=== PATIENT | female | born 1980 | race Caucasian/White ===

== ENCOUNTER 2025-05-05 23:50 | Emergency (ER) | payer OTHER, SELFPAY ==
[2025-05-06] VITALS: BP 138/88; PULSE 108; RESP 16; TEMP 36.8; O2SAT 98
--- NOTE | 2025-05-06 01:02 | ED_ITS ---
HPI - Skin/Abscess/Foreign Bdy General Chief complaint: Skin/Abscess/Foreign Body Stated complaint: insect bite Time Seen by Provider: 05/06/25 00:15 Source: patient Mode of arrival: ambulatory Limitations: no limitations History of Present Illness HPI narrative: This is a 45-year-old female with no significant past medical history presents to the ED for arm infection. Patient states that she woke up this morning and she knows she was scratching her right arm noticed significant redness to the area. She has had this before and she was diagnosed with a bug bite previously. Denies fevers, chills. Related Data Allergies Allergy/AdvReac Type Severity Reaction Status Date / Time ciprofloxacin (From Cipro) Allergy Intermediate Vomiting Verified 05/05/25 23:51 Penicillins Allergy Mild Rash Verified 05/05/25 23:51 sulfamethoxazole Allergy vomiting Verified 05/05/25 23:51 trimethoprim Allergy Vomiting Verified 05/05/25 23:51 Review of Systems Review of Systems: Gen.: Denies fevers or chills Eyes: Denies eye pain or visual change ENT: Denies congestion Respiratory: Denies shortness of breath or cough CV: Denies chest pain or palpitations GI: Denies abdominal pain nausea, emesis or diarrhea denies burning, urgency, frequency or hematuria Musculoskeletal: Denies back pain or muscle pain Neuro: Denies numbness, tingling, weakness or focal weakness Skin: As per HPI Except as documented, all other systems reviewed and negative PMFSH Past Medical History Medical History Anxiety Depression Surgical History Surgical History Dougherty teeth removed Family History Family History Mother Hypertension Father Hypertension Social History Social History Smoking status: Current some day smoker Tobacco type: cigarettes Alcohol intake: current Drinks per week: 10 Substance use: never Exam Narrative: APPEARANCE: No acute distress, nontoxic, resting in bed HEENT: Normocephalic, atraumatic, OMM RESPIRATORY: No respiratory distress CARDIOVASCULAR: Appears well perfused ABDOMINAL: Nondistended MUSCULOSKELETAl: Moves all extremities. No obvious deformities NEURO: Awake and alert. SKIN:: Erythema and warmth over the right forearm with small areas of serous drainage, no areas of fluctuance. PSYCHIATRIC: Normal affect/mood, Course Vital Signs Vital signs: Vital Signs Temperature 98.3 F 05/06/25 00:00 Pulse Rate 108 H 05/06/25 00:00 Respiratory Rate 16 05/06/25 00:00 Blood Pressure 138/88 05/06/25 00:00 Pulse Oximetry 98 05/06/25 00:00 Oxygen Delivery Room Air 05/06/25 00:00 Temperature 98.3 F 05/06/25 00:00 Pulse Rate 108 H 05/06/25 00:00 Respiratory Rate 16 05/06/25 00:00 Blood Pressure 138/88 05/06/25 00:00 Pulse Oximetry 98 05/06/25 00:00 Oxygen Delivery Room Air 05/06/25 00:00 MDM - Skin/Abscess/Foreign Bdy MDM Narrative Medical decision making narrative: 45-year-old female Presenting for possible insect bite versus infection to right arm. On initial evaluation patient was in no acute distress afebrile, hemodynamic stable. Differentials include but are not limited to: Cellulitis, insect bite, abscess, allergic reaction Notable exam findings: Significant erythema over the right forearm with small areas of a small amount of serous drainage Patient's exam was most consistent with a cellulitis. She will be given a prescription for doxycycline. She was advised follow-up with her PCP in the next week for re-evaluation. Patient was agreeable to this plan. Given strict return precautions. Medical Records Attestation: I reviewed the patient's medical records. Discharge Plan Discharge Clinical Impression: Cellulitis Qualifiers: Site of cellulitis: extremity Site of cellulitis of extremity: upper extremity Laterality: right Qualified Code(s): L03.113 - Cellulitis of right upper limb Patient Disposition: Home Condition: Stable Instructions: Antibiotic Form, Cellulitis (ED) Additional Instructions: You likely have a cellulitis. You were given a prescription for doxycycline, take this as prescribed. You may take Tylenol and ibuprofen for the pain. Return the ED for any new or worsening symptoms. For pain, discomfort or temperature greater than or equal to 100.8 ?F please alternate the following 2 medications as needed. First medication- acetaminophen/Tylenol- 1000mg every 6-8 hours as needed for above indications. Second medication- ibuprofen/Motrin-600mg every 6-8 hours as needed for above indication. Patient Language: Kittitian Prescriptions: New doxycycline hyclate 100 mg capsule 100 mg PO BID Qty: 14 0RF No Action venlafaxine 75 mg capsule,extended release 24hr 75 mg PO DAILY Qty: 90 1RF meloxicam 15 mg tablet 15 mg PO DAILY Qty: 30 0RF alprazolam [Xanax] 0.25 mg tablet 0.25 mg PO TID PRN (Reason: anxiety) Qty: 90 0RF Follow-up/Referrals: Carlo,MD Yaa [Primary Care Provider, Family Practice]
[2025-05-06] MEDS: DOXYCYCLINE HYCLATE 100 MG TABLET PO (01:17)
--- OUTSIDE RECORDS SUMMARY | 2025-05-06 02:02 | XMS_ITS | Clinical Summary ---
Author Organization [facility] [place] [address] Address [address] [place] [id number] Care Team Providers Care Inner Layer Scrubber Tender Name Role Phone Yaa Matos MD Primary Care Provider [phone] Allergies Active Allergy Reactions Criticality Noted Date Comments Penicillins Unknown 11/17/2021 Medications No known medications Active Problems No known active problems Surgical History Surgery Date Site/Laterality Comments SECTION Social History Tobacco Use Types Packs/Day Years Used Date Smoking Tobacco: Every Day Personal Safety Answer Date Recorded Getting School Help Needed Not on file 08/17 Comments Unknown Sex and Gender Information Value Date Recorded Sex Assigned at Not on file Legal Sex Female 10:30 AM CDT Gender Identity Not on file Sexual Orientation Not on file Last Filed Vital Signs Vital Sign Reading Time Taken Comments Blood Pressure 144/92 11/17/2021 5:49 PM CDT Pulse 76 11/17/2021 5:49 PM CDT Temperature 37 C (98.6 F) 11/17/2021 5:49 PM CDT Respiratory Rate 16 11/17/2021 5:49 PM CDT Oxygen Saturation 100% 11/17/2021 5:49 PM CDT Inhaled Oxygen Concentration - - Weight 66.2 kg (146 lb) 11/17/2021 5:49 PM CDT Height 157.5 cm (5' 2) 11/17/2021 5:49 PM CDT Body Mass Index 26.7 11/17/2021 5:49 PM CDT Plan of Treatment Not on file Insurance [facility] CHOICE PLUS Care Teams Inner Layer Scrubber Tender Relationship Specialty Start Date End Date Yaa Matos MD PCP - General Family Medicine 11/17/21
--- OUTSIDE RECORDS SUMMARY | 2025-05-06 02:02 | XMS_ITS | Clinical Summary ---
Author Organization [facility] [employer] Address [address] [facility] [place] [address] Care Team Providers Care Flight Manager Name Role Phone Yaa Matos MD Primary Care Provider [phone] Source Comments [facility],non-owned Affiliates and Associated Physician Practices is amultiple site organization consisting of ambulatory clinics and hospital sitesin [place], [place], [place] and [place]. This disclosure is being madepursuant to the Care Everywhere program and may not contain all information available regarding this patient. Last updated 18.[facility] [employer] Allergies Active Allergy Reactions Criticality Noted Date Comments Penicillins Unknown 11/17/2021 Medications * Be aware that medications may not be up to date on this document. Alwaysverify current medications with the patient. No known medications Active Problems Problem Noted Date Diagnosed Date Pain in both lower extremities 12/28/2021 Venous congestion 12/28/2021 Mottled skin 12/28/2021 Social History Tobacco Use Types Packs/Day Years Used Date Smoking Tobacco: Every Day Cigarettes Smokeless Tobacco: Never Comments:started at age 21 Comments No Sex and Gender Information Value Date Recorded Sex Assigned at Not on file Legal Sex Female 4:45 PM CDT Gender Identity Not on file Sexual Orientation Not on file Last Filed Vital Signs Vital Sign Reading Time Taken Comments Blood Pressure 133/83 12/28/2021 3:18 PM CDT Pulse 79 12/28/2021 3:18 PM CDT Temperature 36.6 C (97.9 F) 12/28/2021 3:18 PM CDT Respiratory Rate 20 12/28/2021 3:18 PM CDT Oxygen Saturation 97% 10/28/2018 12:41 PM CDT Inhaled Oxygen Concentration - - Weight 65.3 kg (144 lb) 12/28/2021 3:18 PM CDT Height 157.5 cm (5' 2) 12/28/2021 3:18 PM CDT Body Mass Index 26.34 12/28/2021 3:18 PM CDT Plan of Treatment Health Maintenance Due Date Last Done Comments LIPID TESTING 1982 MAMMOGRAM 1982 HIV SCREENING 1997 HEPATITIS C SCREENING 01/27/2000 DTAP/TDAP/TD VACCINES (1 - Tdap) 2001 HEPATITIS B VACCINE (1 of 3 - 19+ 3-dose series) 2001 PAP SMEAR 2003 HPV VACCINE (1 - 3-dose SCDM series) 2009 Cervical Cancer Screening 02/01/2012 PAP with HPV 02/01/2012 DEPRESSION SCREENING 06/17/2024 COVID-19 VACCINE (1 - 2024-2 6 season) 2025 INFLUENZA VACCINE (#1) 2025 ZOSTER VACCINE (1 of 2) 02/01/2032 HIB VACCINE Aged Out No longer eligi ble based on patient's age to complete this topic MENINGOCOCCAL (Group B) VACC INE SHARED DECISION-MAKING Aged Out No longer eligibl e based on patient's age to complete this topic MENINGOCOCCAL GROUPS A/C/Y/W VACCINE Aged Out No longer eligible b ased on patient's age to complete this topic PNEUMOCOCCAL VACCINE Aged Out No long er eligible based on patient's age to complete this topic [place] [address] [place] [address] Care Teams Flight Manager Relationship Specialty Start Date End Date Yaa Matos MD [address] [place] [address] PCP - General 01/05/22
== END 2025-05-06 01:55 | disposition home or self-care (01) ==
PROVIDERS: Emergency Provider Student in an Organized Health Care Education/Training Program; PCP Family Medicine
DX: L03.113 Cellulitis of right upper limb (principal)
CPT/HCPCS: 99283; A9270